=== PATIENT | male | born 1960 | race Caucasian/White ===

== ENCOUNTER 2016-06-11 18:12 | Emergency (ER) | payer OTHER ==
[~2016-06-11] VITALS: Ht 167.6 cm; Wt 84.1 kg
[2016-06-11 18:32] VITALS: BP 141/84; PULSE 58; RESP 18; O2SAT 98
--- NOTE | 2016-06-11 18:48 | ED.REPORT ---
HPI-Back Pain 40 and Over Date of Service Jun 11, 2016 ED Provider: Magdalena Ho MD The patient is a 56 year old male with history of L1 compression fracture (20 years old) who presents to the ED complaining of an episode of low back pain after twisting his back yesterday afternoon. He states that earlier today he began having intense muscle spasms. He states that his current pain is worse than he has ever felt, prompting his visit. He denies incontinence of bowel/ bladder, numbness, weakness, or any other symptoms at this time. He took Aleve earlier today and a muscle relaxant to little relief. He was initially able to get up and ambulate unassisted but that his pain has worsened to the point of hindering this. Nursing Notes Stated Complaint: BACK INJURY Chief Complaint: Back Pain or Injury Nursing Notes Reviewed: Yes Allergies: Coded Allergies: milk (Verified Allergy, Intermediate, 06/11/16) Scheduled Famotidine (Pepcid) 20 Mg Tablet 20 MG PO BID Meloxicam (Mobic) 7.5 Mg Tablet 7.5 MG PO DAILY Methocarbamol (Robaxin) 500 Mg Tablet 500 MG PO TID General Time Seen by MD: 18:47 Chief Complaint Back pain Hx Obtained From: Patient Arrived By: Walk-in Sudden in Onset?: Yes Onset Occurred: Yesterday Symptom Duration: Intermittent Caused by: Chronic Injury Location: : Spinal lumbar area Quality: Painful Severity: Current: Moderate Severity: Maximum: Moderate Recent Healthcare: No recent doctor visit, No recent hospitalization Similar Sx Previous: Yes Past Medical History Past Medical History Lumbar spine fracture Past Surgical History None reported Ambulatory Status Independent Review of Systems Constitutional: Denies: Fatigue, Fever Respiratory: Denies: Shortness of breath Cardiovascular: Denies: Chest pain GI: Denies: Nausea, Vomiting Musculoskeletal: Reports: Back pain, Denies: Extremity pain, Extremity swelling Neurologic: Denies: Abnormal movement, Bladder dysfunction, Bowel dysfunction, Numbness, Weakness Complete sys rev & neg: except as marked. Physical Exam Initial Vital Signs Vital Signs (First) Date Time Temp Pulse Resp B/P Pulse Ox O2 Delivery O2 Flow Rate FiO2 06/11/16 18:32 36.7 58 18 141/84 98 Room Air Initial VS: Reviewed Head / Eyes: Atraumatic, Normocephalic, PERRL ENT: Mucous membranes moist, Conjunctiva normal, No scleral icterus Neck: Supple, Non-tender, Full range of motion Skin: Warm, Dry, No cyanosis Psychiatric: Mood/affect normal, Behavior normal, Normal thought content General/Constitutional: Awake, Alert, No acute distress Respiratory / Chest: Atraumatic, Breath sounds NL, Breath sounds = bilat, No respiratory distress Cardiovascular: Heart rate NL, Regular rhythm, Heart sounds NL Abdomen: Atraumatic, Soft, Non-tender Back: Atraumatic Flank / Spine / Paraspinal: Positive: Lumbar spine tender... (Mid) Neurologic: Oriented X3, Speech NL, No motor deficits, No sensory deficits Lower Extremity / Pelvis / MS: Atraumatic, Inspection NL, Full range of motion Able to lift both legs equally and without weakness Interpretation & Diagnostics Lab Results Interpretation Test 06/11/16 19:48 Urine Color Straw (YELLOW) Urine Appearance Clear (CLEAR,HAZY) Urine pH 6.5 (5.0-8.0) Urine Specific [place] 1.010 (1.003-1.035) Urine Protein Negativemg/dL (NEG,TRACE) Urine Glucose (UA) Negativemg/dL (NEGATIVE) Urine Ketones Negativemg/dL (NEGATIVE) Urine Occult Blood Negative (NEGATIVE) Urine Nitrite Negative (NEGATIVE) Urine Bilirubin Negative (NEGATIVE) Urine Urobilinogen Normalmg/dL (NORMAL) Urine Leukocyte Esterase Negative (NEGATIVE) Urine RBC 0-2/hpf (0-2) Urine WBC 0-5/hpf (0-5) Urine Epithelial Cells None/hpf (NONE-MOD) Urine Crystals None seen (NONE SEEN) Urine Bacteria None/hpf (NONE-FEW) Urine Hyaline Casts None/lpf (NONE) Urine Granular Casts None seen (NONE SEEN) Urine Waxy Casts None seen (NONE SEEN) Urine Red Blood Cell Casts None seen (NONE SEEN) Urine White Blood Cell Casts None seen (NONE SEEN) Urine Mucus None seen (None Seen) Urine Trichomonas None seen (NONE SEEN) Urine Yeast None (NONE SEEN) Urinalysis Comment None Urine Culture Reflexed Not indicated X-Ray Interpretation Xray Interpretation: IMPRESSION: Mild L1 compression fracture, chronic. No acute thoracic compression fracture Dictated by: Janes Bhatia M.D. on 06/11/2016 at 20:49 Approved by: Janes Bhatia M.D. on 06/11/2016 at 20:50 Study Performed: X-ray thoracic spine Interpretation / Wet Read by: Interpret - Radiologist Re-Eval/Medical Decision Med Decision/Clinical Course 56-year-old male with past medical history of compression fracture of L1 and here with back pain. Differential diagnosis includes but is not limited to muscle spasm versus muscle sprain versus fracture versus dislocation. X-ray is unremarkable for new fracture. Patient was given Valium in the emergency department, and discharged with Mobic, Robaxin, and ranitidine. He was given very strict return precautions that is amenable to discharge at this time with follow-up with his primary care physician. Source of Hx: Old records Re-Evaluation/Progress : Time of Eval: 21:12 Re-Evaluation/Progress Note: Rechecked the patient. Discussed diagnosis and plan for discahrge. The patient understands and agrees to the plan. Follow-up instructions and RTER warnings given. All questions addressed. Counseled Regarding: Diagnosis, Lab results, Need for follow-up, When/why to return to ED Discharge & Departure Impression: Primary Impression: Low back pain Chronicity: acute Back pain laterality: midline Sciatica presence: without sciatica Qualified Code: M54.5 - Low back pain Disposition: Home Discharge Condition All VS Reviewed: Yes Condition: Stable Additional Instructions: Your emergency department visit today included an examination, physical examination, and pain management. I have given you a muscle relaxant in the emergency room today to help with your pain. I have prescribed you the muscle relaxant Robaxin to help with your pain over the next few days. Please take this as prescribed. I have prescribed you Mobic as well to help with your pain over the coming days. Be sure to take this medication with food and do not take medications such as Aleve or Advil while taking Mobic. This can cause some stomach irritation so I have prescribed you the antacid Ranitidine to help with this, take it as needed. Follow-up with your primary care doctor in the coming days if your pain persists. Return to the emergency department if you develop any numbness/weakness in your legs or if you lose control of your bowel/bladder. Thank you for coming in today, I hope you start to feel better soon. Referrals: Milagros Nolasco (PCP) Scribe Attestation Portions of this note were transcribed by Richy Xiao. I, Dr. Ho, personally performed the history, physical exam, and medical decision-making; I reviewed and confirmed the accuracy of the information in the transcribed note. Signed by: [Scribe first and last name], Scribe, [Date] and [Time]. copies to: Milagros Nolasco Rebecca A MD Jun 11, 2016 18:48 RICHY XIAO Jun 11, 2016 19:53
[2016-06-11 20:31] LABS: APPEARANCE,URINE CLEAR (CLEAR,HAZY); COLOR,URINE STRAW (YELLOW); OCCULT BLOOD,URINE NEGATIVE (NEGATIVE); PH,URINE 6.5 (5.0-8.0); UROBILINOGEN,URINE NORMAL (NORMAL)
--- NOTE | 2016-06-11 20:51 | DRSVH ---
PROCEDURE: X-RAY THORACIC SPINE, 3 VIEWS INDICATIONS: back pain TECHNIQUE: 3 views of the thoracic spine were acquired. COMPARISON: [facility], CR, XR LUMBAR SPINE 2 OR 3VW, 11/19/2015, 9:27. FINDINGS: Bones: Mild L1 compression fracture or dislocations. No suspicious bony lesions. Soft tissues: No paravertebral stripe thickening. IMPRESSION: Mild L1 compression fracture, chronic. No acute thoracic compression fracture Dictated by: Janes Bhatia M.D. on 06/11/2016 at 20:49 Approved by: Janes Bhatia M.D. on 06/11/2016 at 20:50
[2016-06-11] MEDS ORDERED: MELO7.5T13 PO (21:10)
[2016-06-11] MEDS ORDERED: METH500T PO (21:10)
[2016-06-11] MEDS ORDERED: FAMO20T PO (21:10)
[2016-06-11 23:03] VITALS: BP 130/81; PULSE 51; RESP 16; O2SAT 96
== END 2016-06-11 22:29 | disposition home or self-care (01) ==
LOC: SED 18:12
DX: M54.5 Low back pain (principal); W18.30XA Fall on same level, unspecified, initial encounter; Y93.89 Activity, other specified; Y92.89 Other specified places as the place of occurrence of the external cause; Y99.8 Other external cause status; Z87.81 Personal history of (healed) traumatic fracture; Z91.011 Allergy to milk products